=== PATIENT | male | born 1990 | race Caucasian/White ===

== ENCOUNTER 2017-01-03 13:52 | Emergency (ER) | payer OTHER ==
[2017-01-03 14:17] LABS: Hematocrit 45.9 % (42.0-52.0); Hemoglobin 16.2 gm/dL (13.5-18.0); Mean Cell Volume 85.3 fl (78-100); Mean Corpuscular Hemoglobin 30.1 pg (27-31); Mean Corpuscular Hgb Conc 35.3 g/dl (32-36); Mean Platelet Volume 11.3 fl (6.0-9.5); Neutrophil # 5.5 K/mm3 (1.3-6.0); Neutrophil % 60.8 % (42-75.0); Platelet Count 262 K/mm3 (150-450); Red Blood Count 5.38 M/mm3 (4.7-6.0); Red Cell Distribution Width 12.1 % (11.5-14.0)
[2017-01-03 14:21] LABS: Urine Bilirubin Negative (NEGATIVE); Urine Blood Negative /ul (NEGATIVE); Urine Ketone Negative (NEGATIVE); Urine Nitrite Negative (NEGATIVE); Urine Protein Negative (NEGATIVE); Urine Urobilinogen Normal (NORMAL); Urine pH 7.5 pH (5.0-7.0)
[2017-01-03 14:25] LABS: Urine Appearance Clear
[2017-01-03 14:29] LABS: Urine Bacteria None Seen; Urine Color Pale Yellow; Urine RBC None Seen /hpf (0-5); Urine WBC None Seen /hpf (0-5)
[2017-01-03 14:33] LABS: ALT 23 U/L (19-67); AST 16 U/L (0-48); Albumin * 4.1 gm/dl (3.4-5.0); Alkaline Phosphatase * 101 U/L (50-170); BUN/Creatinine Ratio 16.5 (9.0-21.6); Bilirubin, Total 0.7 mg/dL (0.0-1.1); Blood Urea Nitrogen 14 mg/dL (6-23); Ca. Corrected For Albumin 8.8 mg/dL (8.4-10.2); Calcium * 9.2 mg/dL (7.9-10.9); Chloride 102 mmol/L (97-106); Glucose * 101 mg/dL (70-110); Potassium 3.9 mmol/L (3.4-4.6); Sodium 142 mmol/L (132-142)
[2017-01-03 14:37] LABS: Anion Gap 11.9 mmol/L (6.8-13.8)
[2017-01-03 14:57] LABS: Cocaine Ur Negative (NEGATIVE); Urine Barbiturate Negative (NEGATIVE); Urine Benzodiazepines Negative (NEGATIVE); Urine Opiates Negative (NEGATIVE); Urine PCP Negative (NEGATIVE); Urine THC Positive (NEGATIVE)
[2017-01-03] MEDS ORDERED: ALPRAZolam 0.25 MG TABLET PO ONE (15:49)
--- NOTE | 2017-01-03 16:01 | ERNOTE ---
Neuro HPI ER Record Date of Service: 01/03/17 Presenting Symptoms: other - Seizure Time Seen by Provider: 01/03/17 15:41 Source: patient, RN notes reviewed, other - [employer] Immunizations: IMMUNIZATION HX Immunizations Up to Date Yes History of Influenza Vaccine No Hx Pneumococcal Vaccination No Allergies/Adverse Reactions: Allergies Allergy/AdvReac Type Severity Reaction Status Date / Time amoxicillin [Amoxicillin] Allergy Mild ? Verified 01/03/17 14:02 Home Medications: HOME MEDICATIONS Albuterol Sulfate [Ventolin Hfa] 8 gm IH PRN PRN 06/30/16 [Last Taken Unknown] ALPRAZolam [Xanax] 2 tab PO BID #28 tablet 01/03/17 [Last Taken Unknown] Divalproex Sodium [Depakote ER] 500 mg PO BID #14 tab.sr.24h 01/03/17 [Last Taken Unknown] OLANZapine [Zyprexa] 5 mg PO DAILY #7 tablet 01/03/17 [Last Taken Unknown] - History of Present Illness Narrative: 26 y/o male brought to the ED from [facility] by ambulance after having a seizure. He has been on Depakote for some time, but has not had any for the past 3 days d/t incarceration. The seizure was witnessed by staff and other inmates. He reports waking up while sitting at a table. He felt confused and had a headache. He reports that this is common with his previous episodes of seizure activity. He also routinely take Alprazolam 2 mg bid and Zyprexa 5 mg daily, and had not had these medications. Onset: better - Character of Deficits Baseline Cognition: Present: alert, oriented x 4 Baseline Gait: Present: walks w/o assistance Associated Symptoms: Reports: neck/back pain, headache, seizure. Denies: fever/ chills, sweating, chest pain, altered mental status, agitated Prior Treament: Reports: recently seen, treated by physician, similar symptoms before Review of Systems - Review of Systems Constitutional: Absent: recent illness, fever, chills EYE: Absent: eye pain, vision changes ENT: Absent: nose congestion, sore throat Respiratory: Absent: shortness of breath, cough Cardiology: Absent: chest pain, palpitations Gastrointestinal/Abdominal: Absent: nausea, vomiting, diarrhea Genitourinary: Present: no symptoms reported Musculoskeletal: Present: muscle pain, neck pain. Absent: joint pain, joint swelling Skin: Absent: rash, lesions, lumps Neurological: Present: anxiety, headache, seizure. Absent: weakness, numbness Endocrine: Present: no symptoms reported Hematologic/Lymphatic: Present: no symptoms reported Psych: Present: anxiety, emotional problems - Patient's Past Medical History Patient History - Medical: Anxiety, Bipolar, Seizures, Other Patient History - Cardiac/Respiratory: Asthma Patient History - Cancer: No Hx of Cancer Patient History - Surgical Procedures: Other Patient History - Other: None - Family History Father Family History - Medical: No pertinent hx Family History - Cardiac/Respiratory: No pertinent hx Mother Family History - Medical: Anxiety, Bipolar Family History - Cardiac/Respiratory: Asthma - Social History Living Situations: other - Senior Living Abuse History: No History of abuse Psych History: Hx of Bipolar Disorder, Hx of Schizophrenia Alcohol Use: occasionally Drug Use: none, other - UDS positive for THC - Immunizations Immunizations Up to Date: Yes Hx Pneumococcal Vaccination: No History of Influenza Vaccine: No Physical Exam - Physical Exam General Appearance: Present: wd/wn, alert, no apparent distress Neck: Present: normal inspection, supple, full range of motion, tender lateral. Absent: tender posterior midline Respiratory: Present: no respiratory distress, normal breath sounds, no accessory muscle use, lungs clear Cardiovascular/Chest: Present: regular rate, rhythm, no murmur Extremity Exam: Present: normal inspection, normal range of motion Neurological Exam: Present: alert, oriented, no motor/sensory deficits, other - dysphoric. Absent: normal mood/affect Skin Exam: Present: normal color, warm/dry ED Progress - Results and Orders Patient's Lab Results:: I have reviewed the patient's lab results. - Vital Signs Patient's Vital Signs:: I have reviewed the patient's vital signs. Vital Signs: Vital Signs 01/03/17 01/03/17 13:55 15:41 Temperature 36.2 C L Pulse Rate 102 H 102 H Respiratory 12 Rate Blood Pressure 105/70 O2 Sat by Pulse 97 Oximetry - Progress/Reassessment Chief Complaint: Seizure Activity Progress:: Improved Plan - Plan Plan: Dose of all 3 routine meds given in department. Rx for 1 week supply. To return to nursing home. Departure Clinical Impression: Schizo-affective schizophrenia, chronic condition, Medication refill, Seizure Anxiety disorder Qualifiers: Anxiety disorder type: unspecified anxiety disorder Qualified Code(s): F41.9 - Anxiety disorder, unspecified - Departure Disposition: Senior Living Condition: Stable Instructions: Seizure, Adult, [id number] Referrals: Michael Lopez MD [Non Staff Physicians] - Prescriptions: ALPRAZolam [Xanax] 2 tab PO BID #28 tablet Divalproex Sodium [Depakote ER] 500 mg PO BID #14 tab.sr.24h OLANZapine [Zyprexa] 5 mg PO DAILY #7 tablet
--- OUTSIDE RECORDS SUMMARY | 2017-01-03 16:04 | XMS REPORT | Continuity of Care Document ---
:1990 Author Organization [facility] ([facility]) Address [address] [place] [address] Phone [phone] Care Team Providers Name Role Phone VitayamilexMichael Primary Care Provider [phone] Source Comments This disclosure is being made pursuant to the Care Everywhere program, applicable federal and state laws, and may not contain all informaitonavailable regarding this patient.[facility] ([facility]) Active Allergies and Adverse Reactions Allergen Noted Date Severity Reactions Comments Amoxicillin 03/12/2012 OTHER Current Medications Prescription Sig. Disp. Refills Start Date End Date Status ALPRAZolam 2 mg Take 2 mg by 2 11/23/2016 Active tablet mouth 2 times daily. levoFLOXacin 750 mg Take 1 tablet 0 11/29/2016 Active tablet by mouth daily. OLANZapine 5 mg Start with 2.5 30 tablet 1 12/07/2016 Active tablet mg at bedtime (1/2 tab). After two weeks increase to 5 mg if no side effects. divalproex 500 mg Take 1 tablet 1 tablet 0 12/07/2016 Active EC tablet (500 mg total) by mouth 2 times daily. ALPRAZolam 2 mg Take 1 tablet 1 tablet 0 12/07/2016 Active tablet (2 mg total) by mouth at bedtime as needed. divalproex 500 mg Take 2 Tabs by 30 Tab 0 03/13/2012 12/07/2016 Discontinued ER tablet 24 hour mouth daily. Indications: MOOD DISORDER venlafaxine 25 mg Take 25 mg by 12/07/2016 Discontinued tablet mouth 2 times daily. Active Problems Problem Noted Date Panic disorder without agoraphobia 12/12/2016 Episodic mood disorder 12/12/2016 Resolved Problems Problem Noted Date Resolved Date Fracture of orbital floor, blow-out, left, closed 01/30/2016 12/12/2016 Most Recent Encounters Date Type Specialty Providers Description 12/13/2016 Telephone Care Coordination Janet Corcoran RN Chief Comp: Medication Adherence 12/07/2016 Office Visit Psychiatry Roger García Jr., Dx: Antisocial personality disorder Kaycee Sampson DO (Primary Dx) 12/07/2016 Pharmacy Visit Social History Tobacco Use Types Packs/Day Years Used Date Current Every Day Smoker 2 Tobacco Cessation:Ready to Quit: Yes Comments: Alcohol Use Drinks/Week oz/Week Comments Yes 0 Standard drinks or equivalent 0.0 Last Filed Vital Signs Vital Sign Reading Time Taken Blood Pressure 129/62 12/07/2016 2:53 PM CDT Pulse 113 12/07/2016 2:53 PM CDT Temperature 36.1 C (97 F) 02/06/2016 5:18 PM CDT Respiratory Rate 16 02/06/2016 5:18 PM CDT Height 1.65 m (5' 4.96") 03/10/2012 9:20 PM CDT Weight 59.1 kg (130 lb 4.7 oz) 12/07/2016 2:49 PM CDT Body Mass Index 21.71 12/07/2016 2:49 PM CDT Oxygen Saturation 99% 02/06/2016 5:18 PM CDT Plan of Care Health Maintenance Due Date Last Done Comments Hepatitis B Vaccine (1 of 3 - 1990 Primary Series) Tdap Vaccine 2003 Lipid Disorder Screening 2010 MMR Vaccine 2010 Td Vaccine 2010 Varicella Vaccine (1 of 2 - Adult 2010 - No Evidence of Immunity) Pneumococcal Vaccine (1 of 1 - 2011 PPSV23) Influenza Vaccine: Seasonal 04/11/2017 (Season Ended) HPV Vaccine Aged Out No longer eligible based on patient's age to complete this topic Results from Last 3 Months Not on file
[2017-01-03 16:21] VITALS: BP 114/74
[2017-01-03] MEDS ORDERED: OLANZapine 5 MG TABLET PO ONE (16:30)
[2017-01-03] MEDS ORDERED: DIVALPROEX SODIUM 500 MG TAB.SR.24H PO ONE (16:30)
== END 2017-01-03 16:25 ==
LOC: ER 13:52
DX: F20.5 Residual schizophrenia (principal); R56.9 Unspecified convulsions; F41.9 Anxiety disorder, unspecified

== ENCOUNTER 2017-09-20 11:13 | Emergency (ER) | payer BC, OTHER ==
[2017-09-20] MEDS ORDERED: ACETAMINOPHEN 325 MG TABLET PO ONE (13:15)
[2017-09-20] MEDS ORDERED: ACETAMINOPHEN 325 MG TABLET ONE (13:16)
--- NOTE | 2017-09-20 13:18 | ERNOTE ---
Medical Problem HPI - Narrative Date of Service: 09/20/17 - General Chief Complaint: Flu Symptoms Time Seen by Provider: 09/20/17 12:59 Source: patient, RN notes reviewed Exam Limitations: no limitations - Immun/Allergies/Home Medications Immunizations: IMMUNIZATION HX Immunizations Up to Date Yes History of Influenza Vaccine No Hx Pneumococcal Vaccination No Allergies/Adverse Reactions: Allergies amoxicillin [Amoxicillin] Allergy (Mild, Verified 09/20/17 11:32) ? Home Medications: HOME MEDICATIONS Albuterol Sulfate [Ventolin Hfa] 8 gm IH PRN PRN 06/30/16 [Last Taken Unknown] ALPRAZolam [Xanax] 2 tab PO BID #28 tablet 01/03/17 [Last Taken Unknown] Divalproex Sodium [Depakote ER] 500 mg PO BID #14 tab.sr.24h 01/03/17 [Last Taken Unknown] Oseltamivir Phosphate 75 mg PO BID #10 capsule 09/20/17 [Last Taken Unknown] Ziprasidone HCl [Geodon] 25 mg PO BID 09/20/17 [Last Taken Unknown] - History of Present History Narrative: 27 year old male presents to the ED with URI symptoms that began last evening. He reports that other household members have influenza and strep. He has not taken anything for his symptoms. Date (Duration): 09/19/17 Review of Systems - Review of Systems Constitutional: Present: fever, chills, fatigue, malaise EYE: Absent: eye pain, eye discharge ENT: Present: nose congestion, nasal drainage, sore throat. Absent: ear pain Respiratory: Present: cough. Absent: shortness of breath Cardiology: Absent: chest pain, syncope Gastrointestinal/Abdominal: Present: nausea. Absent: vomiting, diarrhea, abdominal pain Genitourinary: Present: no symptoms reported Musculoskeletal: Present: muscle pain. Absent: joint pain Skin: Absent: rash, lesions Neurological: Present: headache, dizziness/light-headedness Endocrine: Present: no symptoms reported Hematologic/Lymphatic: Present: no symptoms reported Psych: Present: emotional problems - Patient's Past Medical History Patient History - Medical: Anxiety, Bipolar, Seizures, Other Patient History - Cardiac/Respiratory: Asthma Patient History - Cancer: No Hx of Cancer Patient History - Surgical Procedures: Other Patient History - Other: None - Family History Father Family History - Medical: No pertinent hx Family History - Cardiac/Respiratory: No pertinent hx Mother Family History - Medical: Anxiety, Bipolar Family History - Cardiac/Respiratory: Asthma - Social History Living Situations: home Abuse History: No History of abuse Psych History: Hx of Bipolar Disorder, Hx of Schizophrenia - Immunizations Immunizations Up to Date: Yes Hx Pneumococcal Vaccination: No History of Influenza Vaccine: No Physical Exam - Physical Exam General Appearance: Present: wd/wn, alert, no apparent distress, other - Disheveled, appears to not feel well Head Exam: Present: normal inspection. Absent: swelling, tenderness Eye Exam: Normal inspection: bilateral Ears, Nose, Throat: Present: nasal congestion. Absent: abnormal TM (R), abnormal TM (L), pharyngeal erythema, pharyngeal swelling Neck: Present: normal inspection, nontender, supple Respiratory: Present: no respiratory distress, normal breath sounds, no accessory muscle use, lungs clear Cardiovascular/Chest: Present: no murmur, tachycardia Extremity Exam: Present: normal inspection, normal range of motion Neurological Exam: Present: alert, oriented, no motor/sensory deficits, other - flat affect. Absent: normal mood/affect Skin Exam: Present: warm/dry, pallor ED Progress - Results and Orders Patient's Lab Results:: I have reviewed the patient's lab results. - Vital Signs Patient's Vital Signs:: I have reviewed the patient's vital signs. Vital Signs: Vital Signs 09/20/17 09/20/17 11:29 12:44 Temperature 38.9 C H Pulse Rate 126 H 127 H Respiratory 17 14 Rate Blood Pressure 118/68 O2 Sat by Pulse 96 97 Oximetry - Progress/Reassessment Chief Complaint: Flu Symptoms Progress:: Unchanged Plan - Plan Plan: Influenza is negative but patient has been exposed to influenza A and is ill appearing and febrile, will treat presumptively with Tamiflu. Departure Clinical Impression: Influenza - Departure Disposition: Home self-care Condition: Stable Instructions: Influenza, Adult, [id number], Form - Excuse from Work, School, or Physical Activity Prescriptions: Oseltamivir Phosphate 75 mg PO BID #10 capsule
[2017-09-20 13:25] VITALS: BP 120/74
== END 2017-09-20 13:24 | disposition home or self-care (01) ==
LOC: ER 11:13
DX: F41.9 Anxiety disorder, unspecified; R56.9 Unspecified convulsions; J10.1 Influenza due to other identified influenza virus with other respiratory manifestations; J45.909 Unspecified asthma, uncomplicated; F31.9 Bipolar disorder, unspecified